=== PATIENT | male | born 1960 | race Caucasian/White ===

== ENCOUNTER → 2024-08-21 | Outpatient (CLI) | payer MEDICARE, SELFPAY ==
[2024-08-21 13:22] LABS: Barbiturate Urine NEGATIVE (< 200 ng/mL); Benzodiazepine Urine NEGATIVE (< 200 ng/mL); PCP Urine NEGATIVE (< 25 ng/mL); THC Urine NEGATIVE (< 50 ng/mL)
== END | disposition home or self-care (01) ==
PROVIDERS: PCP Family Medicine; Referring Provider Anesthesiology; Visit Provider Anesthesiology
DX: M96.1 Postlaminectomy syndrome, not elsewhere classified (principal); Z01.812 Encounter for preprocedural laboratory examination
CPT/HCPCS: 80307; 87081

== ENCOUNTER 2024-11-06 11:48 | Day surgery (SDC) | payer MEDICARE, SELFPAY ==
[2024-11-06] VITALS (8 sets, daily range): BP systolic 109–128; BP diastolic 62–87; PULSE 60–67; RESP 16–18; TEMP 36.1–36.8; O2SAT 93–95; BMI 27.6
[2024-11-06] MEDS: Lactated Ringers 1,000 ML 15 ML IV (12:26)
--- NOTE | 2024-11-06 12:49 | PRE.ANES_ITS ---
ASA Classification* ASA Classification ASA Classification: 3 Assessment & Plan Anesthesia* Anesthesia Assessment Anesthesia Assessment: Discussed sedation and/or anesthesia options, risks, benefits, and alternatives with patient/parents/legal guardian/POA. Questions invited. The patient/parents/legal guardian/POA seems to understand and agrees to proceed with anesthesia plan. Reviewed the physical assessment, medical history, allergy history and patient home medications list prior to surgery/procedure/anesthetic and documented any changes. Performed airway and anesthesia risk assessments. Anesthesia Type Anesthesia Type: MAC History Source History Obtained from:: Patient and Chart Anesthesia Focused Assessment* Temperature: 98.2 F Pulse Rate: 61 Blood Pressure: 128/87 Respiratory Rate: 16 Pulse Ox: 95 Oxygen Delivery Method: Room Air Airway Assessment Mouth opens: >3 cm Mallampati Score: II Teeth Condition: Dentures (upper and lower) Neck Range of motion (ROM): Full ROM Labs Anesthesia Preop lab: CBC CHEMISTRY COAG Pre-Assessment Diagnosis/Proposed Procedure Planned Operative Procedure(s): INSERTION SPINAL CORD STIMULATOR Anesthesia History Anesthesia History - assurance senior manager insurance: Anesthesia History - assurance senior manager insurance Hx Hospitalization No 10/30/24 09:23 Any Problems With Anesthesia Yes: STATES OVERDOSED WITH 10/30/24 09:23 APPENDECTOMY 6-7 YRS AGO Cholinesterase deficiency No 10/30/24 09:23 You/Your Family Experience No 10/30/24 09:23 fever (hyperthermia) with Relationship Recent Exposure to Contagious No 11/06/24 12:18 Disease Does patient have nerve Yes 10/30/24 09:23 stimulator Patient instructed to have device shut off --Does patient have Pacemaker No 11/06/24 12:18 or ICD? When Was Last Pacemaker Check QUESTION #4 FULL TEXT: You/Your Family Experience fever (hyperthermia) with Anesthesia Last Oral Intake Last Oral intake: Last Oral Intake NPO since 04:30 11/06/24 12:18 Meds taken in AM with sips of Yes 11/06/24 12:18 water? Meds patient instructed to take am of surgery PONV PONV - assurance senior manager insurance: PONV - assurance senior manager insurance Female No 10/30/24 09:23 HX of Motion Sickness No 10/30/24 09:23 HX of N/V After Surgery No 10/30/24 09:23 Non-Smoker No 10/30/24 09:23 Duration of Surgery greater No 10/30/24 09:23 than 60 minutes Number of Risk Factors PONV Score Height & Weight Height & Weight: Anesthesia: Height & Weight Height 5 ft 11 in 11/06/24 12:18 Weight: 90 kg 11/06/24 12:18 Body Mass Index (BMI) 27.6 11/06/24 12:18 Respiratory Assessment Respiratory Assessment - assurance senior manager insurance: Respiratory Tract Infection Hx - assurance senior manager insurance Hx Respiratory Tract Infection No 10/30/24 09:23 STOP Sleep Apnea STOP Sleep Apnea - assurance senior manager insurance: STOP Sleep Apnea - assurance senior manager insurance Hx Hypertension Yes: CONTROLLED WITH MED 10/30/24 09:23 Hx Sleep Apnea Yes: APAP 10/30/24 09:23 CPAP No 10/30/24 09:23 BIPAP No 10/30/24 09:23 Do you snore loudly (louder than talking or can be heard Do you often feel tired/ fatigued/ sleepy during daytime? Has anyone observed you stop breathing during sleep? STOP Results Positive 10/30/24 09:23 QUESTION #5 FULL TEXT : Do you snore loudly (louder than talking or can be heard through closed doors)? 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 Specify any problems Hx of Preganancy in last 3 N/A 10/30/24 09:23 Months Nurse Filling Out Transfusion DSCHRIBER 10/30/24 09:23 & Questions: Date: 10/30/24 10/30/24 09:23 Time: 10/30/24 09:23 Patient unable to answer at this time (ie. confused, unrespo /Reproduction History /Reproductive History - assurance senior manager insurance: /Reproductive Hx- assurance senior manager insurance Hx Now No 10/30/24 09:23 Gestational Age (in weeks): EDC: Hx Hx Para Hx Section SAB No 10/30/24 09:23 Active Medications Active Medications: Current Medications Generic Name Dose Route Start Last Admin Trade Name Freq PRN Reason Stop Dose Admin Lactated Ringer's 1,000 mls @ 15 mls/hr 11/06/24 12:00 11/06/24 12:26 IV 15 mls/hr .Q48H ILEANA Administration PFSH Medical History Wears glasses Wears dentures Alcohol use Arthritis DVT (deep venous thrombosis) High cholesterol Easy bruising Injury of back Back pain Sleep apnea Smoker Leg cramps History of pain when walking History of edema Cardiology follow-up encounter History of echocardiogram History of stress test Hypertension Home Medications ?Medication ?Instructions ?Recorded ?Last Taken ?Type acetaminophen 500 mg tablet 1,000 mg PO Q6H PRN pain 0 10/30/24 Unknown History (Acetaminophen Extra Strength) amlodipine 5 mg tablet 5 mg PO DAILY 10/30/2411/06 History aspirin 81 mg tablet,delayed 81 mg PO DAILY 10/30/24 U nknown History release (Luc Low Dose Aspirin) atorvastatin 20 mg tablet 20 mg PO QHS 10/30/24 Unknow n History duloxetine 60 mg capsule,delayed 60 mg PO DAILY 11/06/24 History release fenofibrate 160 mg tablet 160 mg PO DAILY 10/30/24 Unk nown History ibuprofen 800 mg tablet (IBU) 800 mg PO Q8H PRN pain 0 10/30/24 Unknown History lisinopril 20 mg tablet 20 mg PO DAILY 10/30/2410/16 History pregabalin 75 mg capsule 75 mg PO TID 10/30/24 History Allergy/AdvReac Type Severity Reaction Status Date / Time No Known Allergies Allergy Verified 11/06/24 12:16 Surgical History Hx of colonoscopy Hx laparoscopic cholecystectomy Hx of appendectomy Hx of spinal surgery Social History Smoking Status: Current every day smoker tobacco type: cigarettes Review of Systems (Anesthesia) ROS Narrative System reviewed and no additional complaints, except as documented.
[2024-11-06] MEDS: Lidocaine 1% (5 ml sdv) 5 ML Vial IV (13:47)
[2024-11-06] MEDS: Midazolam 2 MG/2 ML Syringe 1 MG IV (13:47)
[2024-11-06] MEDS: PROPOFOL 43.2 MG IV (13:48)
[2024-11-06] MEDS: Cefazolin 1 GM/5 ML Vial 2 GM IV (13:49)
[2024-11-06] MEDS: fentaNYL 100 MCG/2 ML Ampul 50 MCG IV (14:27)
[2024-11-06] MEDS: Bupiv/Epi 0.25% 30 ML Vial (14:31)
[2024-11-06] MEDS: Lidocaine 1% (30 ml sdv) 30 ML Vial (14:31)
--- NOTE | 2024-11-06 14:45 | PCM.OPRPT ---
Operative Report (Standard) Operative Information Date of Procedure: 11/06/24 Pre-Operative Diagnosis: Spinal cord stimulator generator end of life Post-Operative Diagnosis: Spinal cord stimulator generator end of life Surgery/Procedure Performed: Spinal cord stimulator generator replacement electric distribution checker: Yes Metal Mover: Diandra Rivera Tasks completed by operator/assistant foreman: Opening, Closing, Dissecting tissue, Altering tissue and Retracting Type of Anesthesia: MAC RN Documented Start/Stop Times: Operation Date: 11/06/24 13:30 Case Time Into Pre-Op 11/06/24 11:57 Out of Pre-Op 11/06/24 13:41 Anesthesia Start 11/06/24 13:42 Into Room 11/06/24 13:42 Procedure Start 11/06/24 14:02 Procedure End 11/06/24 14:42 Procedure Start Time: 14:02 Procedure Stop Time: 14:42 Select all DRAINS/GRAFTS/IMPLANTS that apply: None Estimated Blood Loss: 2 Specimen collected: No Description of surgery: The patient was brought to the operating room and positioned prone on the operating table. All pressure points were appropriately padded. The back and right flank were prepped, cleaned and draped in the usual sterile fashion (chlorhexidine). Anesthesia was induced. Antibiotics were delivered preoperatively. Ioban was used. A 5 cm midline incision was made at the side of the previous incision over the generator using a scalpal, cautery and blunt dissection. The previous generator was removed. The new generator was placed in the right flank pocket and connected to the leads. Connections were verified to be secure, and the generator was anchored in place using 2.0 silk sutures. Hemostasis was achieved throughout the procedure using cautery, and no significant bleeding was encountered. Lidocaine 1% was used for local anesthesia at the beginning of the case, and Bupivacaine was injected at the incision site at the conclusion of the procedure for postoperative pain control. The deeper tissues were closed using Vicryl sutures, and the skin was closed with Monocryl in a running subcuticular fashion. Steri-Strips were applied over the incision sites, and the wounds were dressed with sterile bandages. The patient tolerated the procedure well and was transferred to the recovery area in stable condition. Complications: None. Postoperative Plan: The patient will continue routine follow-up for further evaluation of spinal cord stimulator function and overall pain relief. Surgical Findings: n/a Complications Complications: No
--- NOTE | 2024-11-06 14:55 | PCM.POST.ANE ---
Anesthesia: Postop Eval I Current Vital Signs Temperature: 97 F Pulse Rate: 67 Blood Pressure: 111/62 Respiratory Rate: 16 Pulse Ox: 94 Assessment Airway patent: Yes Spontaneous unlabored respirations: Yes nausea: No Vomiting: No Anesthesia Complication: No Fluid Hydration Crystalloid volume administer (ml): 300 Total IV fluid infused: 300 Progress Note Anesthesia document: Postop Eval 1 completed: Yes
--- NOTE | 2024-11-06 15:14 | POSTOPAN2_ITS ---
Anesthesia Postop Eval I Sum Postop Eval Completion status Anesthesia document: Postop Eval 1 completed: Yes Anesthesia Postop Eval I Summary Anesthesia Postop Eval I Summary: Anesthesia Postop Eval I: Assessment Summary Airway patent Yes 11/06/24 14:55 [email or web address] Spontaneous unlabored Yes 11/06/24 14:55 [email or web address] respirations Mental status nausea No 11/06/24 14:55 [email or web address] Vomiting No 11/06/24 14:55 [email or web address] Anesthesia Postop Eval I: Fluid Summary Crystalloid volume administer 300 11/06/24 14:55 [email or web address] (ml) Colloids volume administered ( ml) Blood Product volume administered (ml) Total IV fluid infused 300 11/06/24 14:55 [email or web address] Anesthesia Postop Eval I: Summary Notes Anesthesia Complication No 11/06/24 14:55 [email or web address] Anesthesia Complication Comment: Post-operative progress note Anesthesia: Postop Eval II Evaluation Mental status: Awake and Calm Pain Level: 0 nausea: No Vomiting: No Complications Anesthesia Complication: No
--- NOTE | 2024-11-06 15:14 | PCM.POSTANE2 ---
Anesthesia Postop Eval I Sum Postop Eval Completion status Anesthesia document: Postop Eval 1 completed: Yes Anesthesia Postop Eval I Summary Anesthesia Postop Eval I Summary: Anesthesia Postop Eval I: Assessment Summary Airway patent Yes 11/06/24 14:55 [email or web address] Spontaneous unlabored Yes 11/06/24 14:55 [email or web address] respirations Mental status nausea No 11/06/24 14:55 [email or web address] Vomiting No 11/06/24 14:55 [email or web address] Anesthesia Postop Eval I: Fluid Summary Crystalloid volume administer 300 11/06/24 14:55 [email or web address] (ml) Colloids volume administered ( ml) Blood Product volume administered (ml) Total IV fluid infused 300 11/06/24 14:55 [email or web address] Anesthesia Postop Eval I: Summary Notes Anesthesia Complication No 11/06/24 14:55 [email or web address] Anesthesia Complication Comment: Post-operative progress note Anesthesia: Postop Eval II Evaluation Mental status: Awake and Calm Pain Level: 0 nausea: No Vomiting: No Complications Anesthesia Complication: No
== END 2024-11-06 15:57 | disposition home or self-care (01) ==
LOC: SDC 11:49 → AC 11:50
PROVIDERS: PCP Family Medicine; Referring Provider Anesthesiology; Visit Provider Anesthesiology
PROC: (CPT 63685; principal; 2024-11-06 13:15)
DX: Z45.42 Encounter for adjustment and management of neurostimulator (principal); E78.5 Hyperlipidemia, unspecified; I12.9 Hypertensive chronic kidney disease with stage 1 through stage 4 chronic kidney disease, or unspecified chronic kidney disease; N18.9 Chronic kidney disease, unspecified; G47.33 Obstructive sleep apnea (adult) (pediatric); Z90.49 Acquired absence of other specified parts of digestive tract
CPT/HCPCS: 63685; 00300; 87641; J2405